=== PATIENT | male | born 1980 | race Caucasian/White ===

== ENCOUNTER 2019-04-04 08:23 | Emergency (ER) | payer BC ==
[2019-04-04] MEDS ORDERED: Morphine 4 MG/ML Syringe IVPUSH ONE (08:41)
[2019-04-04] MEDS ORDERED: Sodium Chloride 0.9% 1,000 ML IV ONE (08:42)
[2019-04-04] MEDS ORDERED: Ondansetron 4 MG/2 ML SDV IVPUSH ONE (08:43)
--- NOTE | 2019-04-04 08:47 | EDM.PDOC ---
ED HPI GENERAL MEDICAL PROBLEM - General Chief Complaint: General Stated Complaint: PAIN IN LOWER LEFT BACK Time Seen by Provider: 04/04/19 08:42 Source of Information: Reports: Patient History Limitations: Reports: No Limitations - History of Present Illness INITIAL COMMENTS - FREE TEXT/NARRATIVE: pt. is a 38 y/o male w/ PMH of IGA-nephropathy, renal induced HTN; presenting today w/ acute onset left lower back pain. States the pain comes and goes and last for brief periods of time; rates the pain during episodes at 9/10 and has a hard time finding a comfortable position. Denies any fevers, chills, body aches, nausea , vomiting and or abdominal pain. Does mention some blood in urine but endorses this is a chronic issues secondary to his IGA nephropathy. Was recently switched off his lisinopril due to "potassium" issues. pt. was scheduled for a renal Doppler this AM but cancelled this appointment secondary to pain. Does have a [facility] in future for possible kidney- donor evaluation. L low back Pain Score (Numeric/FACES): 9 - Related Data Allergies Allergy/AdvReac Type Severity Reaction Status Date / Time azithromycin Allergy Other Verified 04/04/19 08:41 Home Meds: Home Meds Allopurinol [Zyloprim] 100 mg PO BID 04/04/19 [History] Cyclobenzaprine [Flexeril] 5 mg PO Q8HR PRN 3 Days #9 tab 04/04/19 [Rx] Furosemide 40 mg PO DAILY 04/04/19 [History] Hydrocodone/Acetaminophen [Frisco 5-325 Tablet] 1 each PO BID PRN 2 Days #4 tablet 04/04/19 [Rx] Lactobacillus Acidophilus [Probiotic] 1 each PO DAILY 04/04/19 [History] Sodium Bicarbonate 325 mg PO TID 04/04/19 [History] amLODIPine [Norvasc] 10 mg PO DAILY 04/04/19 [History] ED ROS GENERAL - Review of Systems Review Of Systems: See Below Constitutional: Denies: Fever, Chills HEENT: Reports: No Symptoms Respiratory: Reports: No Symptoms. Denies: Shortness of Breath Cardiovascular: Reports: No Symptoms. Denies: Chest Pain GI/Abdominal: Denies: Abdominal Pain, Constipation, Diarrhea : Reports: Flank Pain, Hematuria, Pain. Denies: Discharge, Dysuria, Frequency , Urgency Musculoskeletal: Reports: Back Pain Skin: Reports: No Symptoms Neurological: Reports: No Symptoms. Denies: Dizziness, Headache ED EXAM, GENERAL - Physical Exam Exam: See Below Exam Limited By: No Limitations General Appearance: Alert, Other (wincing w/ pain at times ) Ears: Normal External Exam, Normal TMs Throat/Mouth: Normal Inspection, Normal Oropharynx Neck: Supple, Non-Tender Respiratory/Chest: No Respiratory Distress, Lungs Clear, Normal Breath Sounds Cardiovascular: Regular Rate, Rhythm, No Edema, Other (no periorbital edema, no lower extremity edema ) GI/Abdominal: Soft, Non-Tender, No Organomegaly (Male) Exam: Other (no flank tenderness but pain localized to left CVA. no midline tenderness, no paraspinal tenderness ) Extremities: Normal Inspection, No Pedal Edema Psychiatric: Normal Affect, Normal Mood Skin Exam: Warm, Dry Course - Vital Signs Text/Narrative:: CT scan showed no acute pathology including nephrolithiasis/ diverticulitis or other pathology. Morphine had dome measurable effect on pain. P.t looked comfortable in room on re-examination. States having a similar issue in the past w/ resolution w/ pain and muscle relaxers. Advised to follow up with PCP and to contact his Leasing Manager regarding his hydration status. BP improved w/ bolus of fluids in ER. Advised to return to ED if symptoms worsen, hematuria and or CP /SOB develop. pt. understood. Last Recorded V/S: Last Vital Signs Temp 97.4 F 04/04/19 09:47 Pulse 98 04/04/19 09:47 Resp 17 04/04/19 09:47 BP 134/84 04/04/19 09:47 Pulse Ox 100 04/04/19 09:47 - Orders/Labs/Meds Labs: Laboratory Tests 04/04/19 04/04/19 04/04/19 Range/Units 08:30 08:43 08:43 WBC 8.76 (4.0-11.0) K/uL RBC 3.75 L (4.50-5.90) M/uL Hgb 11.5 L (13.0-17.0) g/dL Hct 34.2 L (38.0-50.0) % MCV 91.2 (80.0-98.0) fL MCH 30.7 (27.0-32.0) pg MCHC 33.6 (31.0-37.0) g/dL RDW Std Deviation 44.3 (28.0-62.0) fl RDW Coeff of Chantelle 14 (11.0-15.0) % Plt Count 265 (150-400) K/uL MPV 9.70 (7.40-12.00) fL Neut % (Auto) 68.2 (48.0-80.0) % Lymph % (Auto) 20.0 (16.0-40.0) % Gilpin % (Auto) 8.2 (0.0-15.0) % Eos % (Auto) 3.3 (0.0-7.0) % Baso % (Auto) 0.3 (0.0-1.5) % Neut # (Auto) 6.0 H (1.4-5.7) K/uL Lymph # (Auto) 1.8 (0.6-2.4) K/uL Gilpin # (Auto) 0.7 (0.0-0.8) K/uL Eos # (Auto) 0.3 (0.0-0.7) K/uL Baso # (Auto) 0.0 (0.0-0.1) K/uL Nucleated RBC % 0.0 /100WBC Nucleated RBCs # 0 K/uL Sodium 137 (136-148) mmol/L Potassium 5.3 H (3.5-5.1) mmol/L Chloride 106 (98-107) mmol/L Carbon Dioxide 20.3 L (21.0-32.0) mmol/L BUN 57 H (7.0-18.0) mg/dL Creatinine 5.2 H (0.8-1.3) mg/dL Est Cr Clr Drug Dosing 24.51 mL/min Estimated GFR (MDRD) 12.5 ml/min Glucose 97 (74-106) mg/dL Calcium 9.4 (8.5-10.1) mg/dL Total Bilirubin 0.3 (0.2-1.0) mg/dL AST 19 (15-37) IU/L ALT 26 (14-63) IU/L Alkaline Phosphatase 64 (46-116) U/L Total Protein 8.4 H (6.4-8.2) g/dL Albumin 3.8 (3.4-5.0) g/dL Globulin 4.6 H (2.6-4.0) g/dL Albumin/Globulin Ratio 0.8 L (0.9-1.6) Urine Color YELLOW Urine Appearance CLEAR Urine pH 6.0 (5.0-8.0) Ur Specific Williams 1.020 (1.001-1.035) Urine Protein 100 H (NEGATIVE) mg/dL Urine Glucose (UA) NEGATIVE (NEGATIVE) mg/dL Urine Ketones NEGATIVE (NEGATIVE) mg/dL Urine Occult Blood SMALL H (NEGATIVE) Urine Nitrite NEGATIVE (NEGATIVE) Urine Bilirubin NEGATIVE (NEGATIVE) Urine Urobilinogen 0.2 (<2.0) EU/dL Ur Leukocyte Esterase NEGATIVE (NEGATIVE) Urine RBC 0-2 (0-2/HPF) Urine WBC 1-4 (0-5/HPF) Ur Squamous Epith Cells OCCASIONAL Urine Bacteria FEW (NEGATIVE) Meds: Medications Discontinued Medications Generic Name Dose Route Start Last Admin Trade Name Freq PRN Reason Stop Dose Admin Sodium Chloride 1,000 mls @ 999 mls/hr 04/04/19 08:42 04/04/19 08:59 Normal Saline IV 04/04/19 09:42 999 mls/hr .Bolus ONE Administration Morphine Sulfate 4 mg 04/04/19 08:41 04/04/19 08:54 Morphine IVPUSH 04/04/19 08:42 4 mg ONETIME ONE Administration Ondansetron HCl 4 mg 04/04/19 08:43 04/04/19 09:02 Zofran IVPUSH 04/04/19 08:44 4 mg ONETIME ONE Administration Departure - Departure Time of Disposition: 10:29 Disposition: Home, Self-Care 01 Condition: Good Clinical Impression: Musculoskeletal back pain - Discharge Information Prescriptions: Cyclobenzaprine [Flexeril] 5 mg PO Q8HR PRN 3 Days #9 tab PRN Reason: Pain Hydrocodone/Acetaminophen [Frisco 5-325 Tablet] 1 each PO BID PRN 2 Days #4 tablet PRN Reason: Pain Instructions: Acute Back Pain, Adult Referrals: PCP,None [Primary Care Provider] - Forms: ED Department Discharge Care Plan Goals: Patient advised to follow up with PCP within 1-2 days. No kidney stone or other immediate emergency was discovered during this visit. Please return if pain smyptoms worsen and or new symptoms develop. ADvised to follow up with your Leasing Manager CARLOS to discuss your worsening renal function.
[2019-04-04 09:23] LABS: CARBON DIOXIDE,CO2 20.3 mmol/L (21.0-32.0); POTASSIUM,K 5.3 mmol/L (3.5-5.1)
--- NOTE | 2019-04-04 09:55 | CT ---
INDICATION : Abdominal pain TECHNIQUE : CT scan of the abdomen and pelvis. NO IV CONTRAST FINDINGS : Lung bases: Clear. Liver: No suspicious mass. Gallbladder: No calcified stones Spleen: Normal size. Pancreas: No suspicious mass or ductal dilatation. Adrenal glands: No suspicious mass. Kidneys: No obvious calculi. no mass lesion or hydronephrosis. Normal size and position. Bladder: No suspicious mass or abnormal wall thickening. GI tract: No abnormal wall thickening or dilatation. No mesenteric abnormality. Appendix is not visualized Retroperitoneum: No adenopathy. No suspicious mass. Aorta and vessels: No aneurysmal dilatation. Pelvis: No mass, free fluid or adenopathy. Skeletal structures: No suspicious skeletal lesions.Lumbar scoliosis convex right. IMPRESSION: 1. No acute radiographic abnormalities, no urinary calculi or hydronephrosis. 2. Incidental lumbar curvature convex to the right. Please note that all CT scans at this facility use dose modulation, iterative reconstruction, and/or weight-based dosing when appropriate to reduce radiation dose to as low as reasonably achievable. Dictated by Brandon Carter MD @ Apr 04 2019 9:54AM Signed by Dr. Brandon Carter @ Apr 04 2019 9:54AM
== END 2019-04-04 10:53 | disposition home or self-care (01) ==
LOC: MW.ED 08:23
DX: M54.5 Low back pain (principal); Z88.1 Allergy status to other antibiotic agents; Z79.899 Other long term (current) drug therapy
CPT/HCPCS: 36415; 74176; 80053; 81001; 85025; 96361; 96374; 96375; 99284; J2270; J2405; J7040; 99283; J7030

== ENCOUNTER 2019-05-23 08:56 | Day surgery (SDC) | payer BC ==
[2019-05-23] MEDS ORDERED: Lactated Ringers 1,000 ML IV SCH ×2 (09:00→11:45)
--- NOTE | 2019-05-23 09:46 | PCM.PREANE ---
Preanesthetic Assessment - Anesthesia/Transfusion/Family Hx Anesthesia History: Prior Anesthesia Without Reaction Family History of Anesthesia Reaction: No Transfusion History: No Prior Transfusion(s) - Review of Systems General: No Symptoms Pulmonary: No Symptoms Cardiovascular: No Symptoms Neurological: No Symptoms Other: Reports: None - Physical Assessment NPO Status Date: 05/22/19 Vital Signs: Last Vital Signs Temp 97.9 F 05/23/19 09:25 Pulse 77 05/23/19 09:25 Resp 16 05/23/19 09:25 BP 137/85 05/23/19 09:25 Pulse Ox 98 05/23/19 09:25 Height: 6 ft 5 in Weight: 126.099 kg ASA Class: 3 Mental Status: Alert & Oriented x3 Airway Class: Mallampati = 2 Dentition: Reports: Normal Dentition ROM/Head Extension: Full Lungs: Clear to Auscultation, Normal Respiratory Effort Cardiovascular: Regular Rate, Regular Rhythm - Allergies Allergies/Adverse Reactions: Allergies Allergy/AdvReac Type Severity Reaction Status Date / Time azithromycin Allergy Other Verified 05/16/19 08:34 - Blood Blood Available: No - Acknowledgements Anesthesia Type Planned: General Anesthesia Pt an Appropriate Candidate for the Planned Anesthesia: Yes Alternatives and Risks of Anesthesia Discussed w Pt/Guardian: Yes Pt/Guardian Understands and Agrees with Anesthesia Plan: Yes Additional Comments: anes prob list: CKD4, eGFR 12, IgA nephropathy, HTN, IBS PLAN: tiva using drugs not requiring renal excretion PreAnesthesia Questionnaire HEENT History: Reports: None Cardiovascular History: Reports: Hypertension Respiratory History: Reports: None Gastrointestinal History: Reports: Chronic Constipation Genitourinary History: Reports: Other (See Below) Other Genitourinary History: IGA Nephropathy, stage V kidney disease, considered for a kidney transplant Musculoskeletal History: Reports: Gout Other Musculoskeletal History: broken foot Neurological History: Reports: None Psychiatric History: Reports: None Endocrine/Metabolic History: Reports: Hyperparathyroidism, Obesity/BMI 30+ Hematologic History: Reports: None Immunologic History: Reports: None Oncologic (Cancer) History: Reports: None Dermatologic History: Reports: None - Infectious Disease History Infectious Disease History: Reports: Chicken Pox - Past Surgical History Head Surgeries/Procedures: Reports: None HEENT Surgical History: Reports: None Cardiovascular Surgical History: Reports: None Respiratory Surgical History: Reports: None GI Surgical History: Reports: Appendectomy, Colonoscopy Male Surgical History: Reports: Other (See Below) Other Male Surgeries/Procedures: kidney biopsy Endocrine Surgical History: Reports: None Neurological Surgical History: Reports: None Musculoskeletal Surgical History: Reports: None Oncologic Surgical History: Reports: None Dermatological Surgical History: Reports: None - SUBSTANCE USE Smoking Status *Q: Former Smoker Tobacco Use Within Last Twelve Months: No Recreational Drug Use History: No - HOME MEDS Home Medications: Home Meds Furosemide 40 mg PO DAILY 04/04/19 [History] allopurinoL [Zyloprim] 100 mg PO BID 04/04/19 [History] amLODIPine [Norvasc] 5 mg PO DAILY 04/04/19 [History] Arginine 500 mg PO BID 05/12/19 [History] L.acidoph,Paracasei, B.lactis [Probiotic] 1 tab PO DAILY 05/12/19 [History] Turmeric 1 tab PO DAILY 05/12/19 [History] Ubidecarenone [Co Q-10] 1 tab PO DAILY 05/12/19 [History] calcitrioL [Calcitriol] 0.25 mcg PO ASDIRECTED 05/12/19 [History] - CURRENT (IN HOUSE) MEDS Current Meds: Current Medications Lactated Ringer's (Ringers, Lactated) 1,000 mls @ 125 mls/hr IV ASDIRECTED JOHNSON
[2019-05-23] MEDS ORDERED: Propofol 200 MG/20 ML SDV ONE ×2 (10:00→11:08)
[2019-05-23] MEDS ORDERED: Ondansetron 4 MG/2 ML SDV ONE (10:00)
[2019-05-23] MEDS ORDERED: fentaNYL 100 MCG/2 ML SDV ONE (10:01)
[2019-05-23] MEDS ORDERED: Midazolam 1 MG/ML 2 ML SDV ONE (10:01)
--- NOTE | 2019-05-23 11:40 | PCM.POSTAN ---
POST ANESTHESIA ASSESSMENT - MENTAL STATUS Mental Status: Alert - VITAL SIGNS Vital Signs: Last Vital Signs Temp 36.6 C 05/23/19 09:25 Pulse 82 05/23/19 11:36 Resp 13 05/23/19 11:36 BP 113/76 05/23/19 11:36 Pulse Ox 97 05/23/19 11:36 - RESPIRATORY Respiratory Status: Respiratory Rate WNL - CARDIOVASCULAR CV Status: Pulse Rate WNL - GASTROINTESTINAL GI Status: No Symptoms - PAIN Pain Score: 0 - POST OP HYDRATION Hydration Status: Adequate & Stable (Doing well. Ready for transfer to Phase 2. )
--- NOTE | 2019-05-23 11:47 | PCM.OPNOTE ---
- General Post-Op/Procedure Note Date of Surgery/Procedure: 05/23/19 Operative Procedure(s): Colonoscopy Pre Op Diagnosis: Colorectal cancer screening prior to renal transplant. Rectal bleeding. IgA nephropathy. Post-Op Diagnosis: Internal hemorrhoids. Anesthesia Technique: MAC (ASA III) Primary Surgeon: Pranay Gill Condition: Good Free Text/Narrative:: Intake & Output 05/22/19 05/23/19 05/23/19 19:59 03:59 11:59 Intake Total 800 Balance 800 CPT CODE 66440
--- NOTE | 2019-05-23 15:07 | OR ---
SURGEON: Pranay Gill M.D. DATE OF PROCEDURE: 05/23/2019 OPERATION PERFORMED: Colonoscopy. PRIMARY SURGEON: Pranay Gill M.D. ANESTHESIA: MAC ASA CLASSIFICATION: III. PREOPERATIVE DIAGNOSES: 1. Desire for colorectal cancer screening prior to renal transplant. 2. Rectal bleeding. 3. Chronic IgA nephropathy. 4. Internal hemorrhoids. POSTOPERATIVE DIAGNOSES: Internal hemorrhoids. DESCRIPTION OF PROCEDURE: The patient was taken to the endoscopy room and positioned on the endoscopy table in the left lateral decubitus position. Time-out was called for appropriate identification of the patient and procedure. Monitored anesthesia care was provided. The colonoscope was inserted into the rectum and advanced with moderate difficulty to the cecum. The colonoscope was retroflexed to visualize the ascending colon from below and then straightened and slowly withdrawn. The cecum was identified by internal landmarks and external pressure. The cecum, ascending colon, hepatic flexure, transverse colon, splenic flexure, descending colon, and sigmoid colon showed no tumors, polyps, diverticula, or angiodysplastic changes. No polyps were encountered anywhere in the lower gastrointestinal tract. The colonoscope was withdrawn to the rectum and was retroflexed to visualize the anal orifice from above. The patient does have some internal hemorrhoids. No acute or active bleeding was noted. No distal rectal polyps were encountered. The colonoscope was then straightened, the rectum aspirated, and colonoscope removed. The patient tolerated the procedure well and was taken to recovery room in stable condition. JERMAINE / CHELSEA /[id number] SHAINA
== END 2019-05-23 12:14 | disposition home or self-care (01) ==
LOC: MW.SDS 08:56
PROVIDERS: ATTEND Surgery
DX: K62.5 Hemorrhage of anus and rectum (principal); K64.8 Other hemorrhoids; I12.0 Hypertensive chronic kidney disease with stage 5 chronic kidney disease or end stage renal disease; N18.5 Chronic kidney disease, stage 5; E21.3 Hyperparathyroidism, unspecified; E66.9 Obesity, unspecified; Z68.33 Body mass index [BMI] 33.0-33.9, adult; Z87.891 Personal history of nicotine dependence; Z79.899 Other long term (current) drug therapy
CPT/HCPCS: 45378; J2250; J2405; J2704; J3010; J7120; 00811